=== PATIENT | male | born 1990 | race Caucasian/White ===

== ENCOUNTER 2022-08-08 10:35 | Emergency (ER) | payer SELFPAY ==
--- NOTE | 2022-08-08 11:08 | NUR ---
CALLEDX1. NO SHOW. Addendum: 08/08/22 at 1121 by [facility] PATIENT LEFT WITHOUT BEING SEEN BY DR. GARCIA. NO FURTHER CARE PROVIDED FOR PATIENT.
--- NOTE | 2022-08-08 11:10 | NUR ---
CALLED [phone]. NO ANSWERING.
[2022-08-08 11:11] VITALS: BP 179/107
--- NOTE | 2022-08-08 11:21 | NUR ---
CALLEDX2. NO SHOW.
--- NOTE | 2022-08-08 11:31 | NUR ---
PATIENT LEFT WITHOUT BEING SEEN BY DR GARCIA. NO FURTHER CARE PROVIDED FOR PATIENT.
== END 2022-08-08 11:08 | disposition left against medical advice (07) ==
LOC: MED 10:35
DX: J11.1 Influenza due to unidentified influenza virus with other respiratory manifestations (principal); Z53.21 Procedure and treatment not carried out due to patient leaving prior to being seen by health care provider